=== PATIENT | female | born 1960 | race Caucasian/White ===

== ENCOUNTER 2016-08-30 19:29 | Emergency (ER) | payer OTHER ==
[~2016-08-30] VITALS: Ht 152.4 cm; Wt 61.5 kg
[2016-08-30 19:51] VITALS: Ht 152.4 cm; Wt 61.5 kg
[2016-08-30] MEDS ORDERED: ONDANSETRON (ODT) 4 MG TAB ODT STA (20:20)
[2016-08-30] MEDS ORDERED: HYDROCODONE/APAP (5/325) TAB PO ONE (20:30)
[2016-08-30 20:58] LABS: URINE BLOOD (Dip) POC Negative (NEGATIVE)
--- NOTE | 2016-08-30 22:42 | RADRPT ---
PROCEDURE: XR Cervical Spine. CLINICAL INDICATION: Cervical spine pain. TECHNIQUE: AP, lateral and odontoid views of the cervical spine were performed. The images were re viewed on a PACS workstation. COMPARISON: None available FINDINGS: There is 2 mm retrolisthesis of C5 on C6. There are small anterior osteophytes with mild to moderat e narrowing at C5-6. The vertebral body height and osseous mineralization are normal. There is no e vidence of fracture or dislocation. There is diffuse mild facet arthropathy. There is preservation o f the remaining intervertebral disc spaces. There are no abnormal calcifications. The prevertebral s oft tissues are normal. No radiopaque foreign bodies are identified. There are mild degenerative manuel nges of the atlanto-odontoid articulation with the atlanto-dental interval measuring 1.6 mm. IMPRESSION: 1. Moderate degenerative disc disease at the C5-6 with grade 1 retrolisthesis. 2. Diffuse mild facet spondylosis. 3. No evidence of acute fracture. RPTAT: HGAS .Karri Cortes MD, Date Time Electronically viewed and signed by .Karri Cortes MD, on 08/30/2016 22:41 .S/
[2016-08-30] MEDS ORDERED: HYDR-906 PO (22:49)
[2016-08-30] MEDS ORDERED: NAPR-260 PO (22:49)
--- NOTE | 2016-08-30 22:58 | RADRPT ---
PROCEDURE: XR Thoracic Spine. CLINICAL INDICATION: Thoracic spine pain. TECHNIQUE: AP and lateral views of the thoracic spine were obtained. Images reviewed on a PACS wor kstation. COMPARISON: No prior studies are available for comparison. FINDINGS: The AP view is significantly degraded by motion artifact. There is a mild right convex scoliosis ce ntered at T9-10. The alignment of the thoracic spine is within normal limits on the lateral view. The vertebral body heights and marrow density are normal in appearance. There is no evidence of fra cture. There are diffuse anterior osteophytes in the mid and lower thoracic spine with preservation of the intervertebral disc spaces. The neural foramina appear patent. The paraspinal soft tissues unremarkable. The visualized portions of the thorax are unremarkable. IMPRESSION: 1. Mild degenerative disc disease in the mid and lower thoracic spine. 2. No evidence of fracture. 3. AP view is obscured due to motion artifact. RPTAT: HGAS .Karri Cortes MD, Date Time Electronically viewed and signed by .Karri Cortes MD, on 08/30/2016 22:57 .S/
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
--- NOTE | 2016-08-30 23:31 | RADRPT ---
PROCEDURE: XR Lumbar Spine. CLINICAL INDICATION: Lumbar spine pain. TECHNIQUE: AP, lateral, and cone-down lateral view of the lumbar spine were obtained. COMPARISON: No prior studies are available for comparison. FINDINGS: There is 14 mm of anterolisthesis of L4 on L5. There is right hemisacralization of the L5 vertebral body. The vertebral body heights and marrow density are normal in appearance. There are anterior osteophytes with severe disc-space narrowing at L4-5. There is suggestion of bilateral L4 pars inte rarticularis defect. There is preservation of the remaining intervertebral disc spaces. There is n o significant facet spondylosis. The neural foramina appear patent. The paraspinal soft tissues un remarkable. There are moderate degenerate changes of the interspinous articulations from L2-L5. IMPRESSION: 1. Suggestion of bilateral L4 pars interarticularis defects with grade 2/3 anterolisthesis of L4 on L5. 2. CT may be helpful for further evaluation of the pars defects. 3. Right polo sacralization of the L5 vertebral body. 4. No definite evidence of acute fracture. RPTAT: HGAS .Karri Cortes MD, Date Time Electronically viewed and signed by .Karri Cortes MD, on 08/30/2016 23:31 .S/
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
[2016-08-31 00:01] VITALS: BP 160/86; PULSE 76; RESP 14; TEMP 97.2
== END 2016-08-31 00:16 | disposition home or self-care (01) ==
LOC: FTE 19:29
DX: S49.92XA Unspecified injury of left shoulder and upper arm, initial encounter (principal); S29.001A Unspecified injury of muscle and tendon of front wall of thorax, initial encounter; S19.9XXA Unspecified injury of neck, initial encounter; S29.9XXA Unspecified injury of thorax, initial encounter; S39.92XA Unspecified injury of lower back, initial encounter; F17.210 Nicotine dependence, cigarettes, uncomplicated; E11.9 Type 2 diabetes mellitus without complications; R11.0 Nausea; V43.52XA Car driver injured in collision with other type car in traffic accident, initial encounter
CPT/HCPCS: 71010; 72040; 72072; 72100; 73030; 81003; 82962; Z7502; Z7610